=== PATIENT | male | born 1985 | race African-American/Black ===

== ENCOUNTER 2016-11-16 15:34 | Emergency (ER) ==
[2016-11-16 15:39] VITALS: BP 130/85; TEMP 99.6; BMI 25.5
[2016-11-16 15:58] LABS: EOSINOPHILS # (AUTO) 0.1 K/ul (0.0-0.7); EOSINOPHILS % (AUTO) 1.8 % (0.0-7.0); HEMATOCRIT 43.8 % (42.0-52.0); HEMOGLOBIN 15.1 g/dl (14.0-18.0); LYMPHOCYTES # (AUTO) 0.9 K/uL (0.60-3.4); LYMPHOCYTES % (AUTO) 22.6 (10.0-50.0); MEAN CORPUSCULAR HEMOGLOBIN 26.4 pg (27.0-31.0); MEAN CORPUSCULAR HGB CONC 34.5 (31.8-35.4); MEAN CORPUSCULAR VOLUME 76.4 fl (80.0-94.0); MONOCYTES # (AUTO) 0.2 K/uL (0.4-2.0); MONOCYTES % (AUTO) 4.5 (0-10); NEUTROPHILS # (AUTO) 2.8 K/ul (2.0-6.9); NEUTROPHILS % (AUTO) 70.1; PLATELET COUNT 177 10^3/uL (140-440); RED BLOOD COUNT 5.73 10^6/ul (4.70-6.10); WHITE BLOOD COUNT 3.98 K/ul (4.2-10.2)
[2016-11-16 16:20] LABS: ALBUMIN 4.3 g/dL (3.4-5.0); ALBUMIN/GLOBULIN RATIO 1.48; ANION GAP 12.4; BILIRUBIN,TOTAL 0.76 mg/dL (0.00-1.20); BUN/CREATININE RATIO 11.25; CALCIUM 9.5 mg/dL (8.2-10.2); CREATININE 1.51 mg/dL (0.60-1.10); POTASSIUM 4.4 mmol/L (3.5-5.1); TOTAL PROTEIN 7.2 g/dL (6.4-8.2)
[2016-11-16 16:28] LABS: ADD URINE MICROSCOPIC NO; BILIRUBIN,URINE Negative (NEGATIVE); KETONES,URINE Negative (NEGATIVE); LEUKOCYTE ESTERASE ,URINE Negative (NEGATIVE); NITRITE,URINE Negative (NEGATIVE); PH,URINE 7.5 (5-9); PROTEIN,URINE Negative (NEGATIVE); URINE, BLOOD Negative (NEGATIVE)
--- NOTE | 2016-11-16 16:50 | ED.PDOC ---
General ED Provider: Dr. NAYELY CHRISTIANSON Chief Complaint: Rectal Pain Stated Complaint: rectal pain Time Seen by Physician: 15:45 (no dark or bloody stools ) Mode of Arrival: Walk-In Information Source: Patient Exam Limitations: No limitations Nursing and Triage Documentation Reviewed and Agree: Yes GI Complaint Exam - Rectal Complaint/Exam Patient Complains of: Reports: Rectal pain. Denies: Rectal bleeding, Foreign body Symptoms Are: Resolved Timing: Intermittent Episodes Lasting: Weeks Initial Severity: Mild Current Severity: None Location: Reports: Rectal Character: Reports: Dull Aggravating: Reports: Bowel movement Alleviating: Reports: None Associated Signs and Symptoms: Denies: Rectal bleeding, Blood-streaked stool, Black tarry stool, Bright red blood w/ stool, Blood without stool Related History: Reports: Similar episode. Denies: Hemorrhoids, Proctitis, Crohn's, STD, Pilonidal Abcess, Perirectal Abcess, Hx of anal intercourse, Foriegn object Related Surgical History: Reports: None Review of Systems - Review Of Systems Constitutional: Reports: No symptoms Eyes: Reports: No symptoms Ears, Nose, Mouth, Throat: Reports: No symptoms Respiratory: Reports: No symptoms Cardiac: Reports: No symptoms GI: Reports: Other (RECTAL PAIN) : Reports: No symptoms Musculoskeletal: Reports: No symptoms Skin: Reports: No symptoms Neurological: Reports: No symptoms Endocrine: Reports: No symptoms Hematologic/Lymphatic: Reports: No symptoms All Other Systems: Reviewed and Negative Past Medical History - Past Medical History Previously Healthy: Yes Endocrine: Reports: None Cardiovascular: Reports: None Respiratory: Reports: None Hematological: Reports: None Gastrointestinal: Reports: None Genitourinary: Reports: None Neuro/Psych: Reports: None Musculoskeletal: Reports: None Cancer: Reports: None - Surgical History General Surgical History: Reports: None - Family History Family History: Reports: None - Social History Smoking Status: Never smoker Hx Substance Use: No Alcohol Screening: None Physical Exam - Physical Exam Appearance: Well-appearing, No pain distress, Well-nourished Eyes: LUCÍA, EOMI, Conjunctiva clear ENT: Ears normal, Nose normal, Oropharynx normal Respiratory: Airway patent, Breath sounds clear, Breath sounds equal, Respirations nonlabored Cardiovascular: RRR, Pulses normal, No rub, No murmur GI/: Soft, Nontender, No masses, Bowel sounds normal, No Organomegaly Musculoskeletal: Normal strength, ROM intact, No edema, No calf tenderness Skin: Warm, Dry, Normal color Neurological: Sensation intact, Motor intact, Reflexes intact, Cranial nerves intact, Alert, Oriented Psychiatric: Affect appropriate, Mood appropriate Critical Care Note - Critical Care Note Total Time (mins): 0 Course - Course Hematology/Chemistry: 11/16/16 15:45 11/16/16 15:45 Orders, Labs, Meds: Lab Review 11/16/16 11/16/16 15:45 16:07 WBC 3.98 L RBC 5.73 Hgb 15.1 Hct 43.8 MCV 76.4 L MCH 26.4 L MCHC 34.5 RDW Coeff of Emma 13.3 Plt Count 177 Immature Gran % (Auto) 0.0 Neut % (Auto) 70.1 Lymph % (Auto) 22.6 Morgan % (Auto) 4.5 Eos % (Auto) 1.8 Baso % (Auto) 1.0 Immature Gran # (Auto) 0.0 Neut # 2.8 Lymph # 0.9 Morgan # 0.2 L Eos # 0.1 Baso # 0.0 Sodium 141 Potassium 4.4 Chloride 103 Carbon Dioxide 30 Anion Gap 12.4 BUN 17 Creatinine 1.51 H Estimated GFR (MDRD) 66.00 BUN/Creatinine Ratio 11.25 Glucose 100 Calcium 9.5 Total Bilirubin 0.76 AST 20 ALT 16 Alkaline Phosphatase 61 Total Protein 7.2 Albumin 4.3 Globulin 2.9 Albumin/Globulin Ratio 1.48 Urine Color Yellow Urine Clarity Clear Urine pH 7.5 Ur Specific [place] 1.020 Urine Protein Negative Urine Glucose (UA) Negative Urine Ketones Negative Urine Blood Negative Urine Nitrite Negative Urine Bilirubin Negative Urine Urobilinogen 0.2 Ur Leukocyte Esterase Negative Orders Category Date Time Status CBC W/ AUTO DIFF Stat LAB 11/16/16 15:45 Completed COMPREHENSIVE METABOLIC PANEL Stat LAB 11/16/16 15:45 Completed PSA [PROSTATE SPECIFIC ANTIGEN SCRN] Stat LAB 11/16/16 15:45 Received URINALYSIS C & S IF INDICATED Stat LAB 11/16/16 16:07 Completed Vital Signs: Temp Pulse Resp BP Pulse Ox 11/16/16 15:36 99.6 F 77 20 130/85 94 L Departure - Departure Time of Disposition: 16:49 (must return for ultra sound Usha) Disposition: HOME SELF-CARE Discharge Problem: Rectal pain Instructions: Rectal Pain (ED) Condition: Good Pt referred to PMD for follow-up: No Additional Instructions: Please call your Family Physician as soon as possible to schedule a follow-up appointment. RETURN IN AM FOR ULTRASOUND Allergies/Adverse Reactions: Allergies No Known Allergies Allergy (Unverified 11/16/16 15:34) Home Medications: Ambulatory Orders Hydrocodone/Acetaminophen [Hydrocodon-Acetaminophen 5-325] 1 each PO TID PRN Naproxen [Naprosyn] 500 mg PO Q12HR PRN #30 tablet 02/28/15
== END 2016-11-16 16:57 | disposition home or self-care (01) ==
LOC: ED 15:34
DX: K62.89 Other specified diseases of anus and rectum (principal)
CPT/HCPCS: 36415; 80053; 81001; 85025; 99283

== ENCOUNTER 2016-11-17 10:17 | Emergency (ER) ==
[2016-11-17 10:17] VITALS: BMI 25.5
[2016-11-17 10:28] VITALS: BP 127/88; TEMP 97.7
--- NOTE | 2016-11-17 11:38 | CT ---
EXAM: CT abdomen pelvis without contrast HISTORY: Elevated creatinine and prostate symptoms, rectal pain, low back pain COMPARISON: None TECHNIQUE: CT abdomen pelvis performed without intravenous contrast. Coronal and sagittal reformat anand images obtained. FINDINGS: The lung bases clear. No free air. No acute abnormalities of the bones. Mild degenerat marta change in the spine. Heart normal in size. Evaluation organ parenchyma limited without contras t. Liver appears normal. Gallbladder appears normal. The pancreas appears normal. Spleen appears normal. Adrenals appear normal. No hydronephrosis or nephrolithiasis. No calculi visualized in n ormal course of the ureters. Aorta normal in caliber. No lymphadenopathy or ascites. Bladder onl y mildly distended and poorly evaluated, grossly unremarkable. Prostate normal in size. Stomach ap pears normal. No dilated loops small bowel. Appendix appears normal. Colon appears normal. IMPRESSION: No acute inflammatory process identified in the abdomen or pelvis. No hydronephrosis o r nephrolithiasis
--- NOTE | 2016-11-17 11:57 | ED.PDOC ---
General ED Provider: Dr. NAYELY CHRISTIANSON Chief Complaint: Rectal Pain Stated Complaint: RECTAL PAIN Time Seen by Physician: 10:20 (RETURNS FOR FOLLOW UP PER MY INSTRUCTION NO GI BLEED ) Mode of Arrival: Walk-In Information Source: Patient Exam Limitations: No limitations Nursing and Triage Documentation Reviewed and Agree: Yes GI Complaint Exam - Rectal Complaint/Exam Patient Complains of: Reports: Rectal pain Onset/Duration: WEEKS NO GI BLEED Timing: Intermittent Episodes Lasting: Weeks Initial Severity: Moderate Current Severity: None Location: Reports: Anal Character: Reports: Dull Aggravating: Reports: None Alleviating: Reports: None Associated Signs and Symptoms: Denies: Rectal bleeding, Blood-streaked stool, Black tarry stool, Bright red blood w/ stool, Blood without stool Related History: Reports: Similar episode Related Surgical History: Reports: None Review of Systems - Review Of Systems Constitutional: Reports: No symptoms Eyes: Reports: No symptoms Ears, Nose, Mouth, Throat: Reports: No symptoms Respiratory: Reports: No symptoms Cardiac: Reports: No symptoms GI: Reports: Other (RECTAL PAIN) : Denies: Burning, Dysuria, Discharge, Frequency, Flank pain, Hematuria, Incontinence, Pain, Urgency Musculoskeletal: Reports: No symptoms Skin: Reports: No symptoms Neurological: Reports: No symptoms Endocrine: Reports: No symptoms Hematologic/Lymphatic: Reports: No symptoms All Other Systems: Reviewed and Negative Past Medical History - Past Medical History Previously Healthy: Yes Endocrine: Reports: None Cardiovascular: Reports: None Respiratory: Reports: None Hematological: Reports: None Gastrointestinal: Reports: None Genitourinary: Reports: None Neuro/Psych: Reports: None Musculoskeletal: Reports: None Cancer: Reports: None - Surgical History General Surgical History: Reports: None - Family History Family History: Reports: None - Social History Smoking Status: Never smoker Hx Substance Use: No Alcohol Screening: None - Immunizations Tetanus Shot up to Date: Yes Physical Exam - Physical Exam Appearance: Well-appearing, No pain distress, Well-nourished Eyes: LUCÍA, EOMI, Conjunctiva clear ENT: Ears normal, Nose normal, Oropharynx normal Respiratory: Airway patent, Breath sounds clear, Breath sounds equal, Respirations nonlabored Cardiovascular: RRR, Pulses normal, No rub, No murmur GI/: Soft, Nontender, No masses, Bowel sounds normal, No Organomegaly Musculoskeletal: Normal strength, ROM intact, No edema, No calf tenderness Skin: Warm, Dry, Normal color Neurological: Sensation intact, Motor intact, Reflexes intact, Cranial nerves intact, Alert, Oriented Psychiatric: Affect appropriate, Mood appropriate Interpretation - Radiology Interpretation Radiology Interpretation By: Radiologist Radiology Results: No acute changes Exam Interpreted: CT Scan Critical Care Note - Critical Care Note Total Time (mins): 0 Course - Course Orders, Labs, Meds: Orders Category Date Time Status CT ABD/PEL WO RENAL STONE PROT Stat RADS 11/17/16 10:27 Completed Vital Signs: Temp Pulse Resp BP Pulse Ox 11/17/16 10:18 97.7 F 76 16 127/88 96 Departure - Departure Time of Disposition: 11:58 Disposition: HOME SELF-CARE Discharge Problem: Rectal pain Instructions: Rectal Pain (ED) Condition: Good Pt referred to PMD for follow-up: No Additional Instructions: Please call your Family Physician as soon as possible to schedule a follow-up appointment.MUST FOLLOW UP WITH CLINIC FOR UROLOGY, COLONSCOPY FOLLOW UP ELICIA Allergies/Adverse Reactions: Allergies No Known Allergies Allergy (Unverified 11/16/16 15:34) Home Medications: Ambulatory Orders Hydrocodone/Acetaminophen [Hydrocodon-Acetaminophen 5-325] 1 each PO TID PRN Naproxen [Naprosyn] 500 mg PO Q12HR PRN #30 tablet 02/28/15 Disposition Discussed With: Patient
== END 2016-11-17 12:07 | disposition home or self-care (01) ==
LOC: ED 10:17
DX: K62.89 Other specified diseases of anus and rectum (principal)
CPT/HCPCS: 74176; 99282

== ENCOUNTER 2016-11-21 10:25 | Outpatient (CLI) ==
--- NOTE | 2016-11-21 12:14 | US ---
EXAM: SCROTAL ULTRASOUND HISTORY: Painful ejaculation FINDINGS: Scrotal ultrasound exam performed using real time keen-scale and color-flow Doppler imaging. The right testis measures 4.0 x 2.2 x 2.5 cm and the left measures 3.7 x 1.7 x 2.1 cm. 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 The technologist measured a 0.4 cm h ypoechoic focus which was thought to be within the upper left testis and is of indeterminate etiolog y and clinical significance. Conceivably this could be tissue adjacent to the testis, indeterminate . Testes otherwise demonstrated normal and symmetric echogenicity. Adequate bilateral testicular b lood flow is seen. Epididymal tissue was grossly within normal limits. There is a small left varic ocele. Small simple left hydrocele. IMPRESSION: 1. No definite etiology for the patient's symptoms was found. 2. Exuberant bilateral microlithiasis which it is thought to hold an increased chance for testicula r neoplasia. There is an indeterminate hypoechoic focus which may be within the superior left testi cular substance, as described. Follow-up ultrasound with attention to this level is recommended. 3. Left varicocele. 4. Small simple left hydrocele.
== END 2016-11-21 10:26 | disposition home or self-care (01) ==
LOC: RAD 10:25
PROVIDERS: ATTEND Nurse Practitioner Family
DX: N53.12 Painful ejaculation (principal)

== ENCOUNTER 2017-01-09 13:15 | Emergency (ER) ==
[2017-01-09 13:25] VITALS: BP 111/69; TEMP 97.9; BMI 25.7
--- NOTE | 2017-01-09 15:34 | ED.PDOC ---
General ED Provider: Dr. CHELITA TURNER Chief Complaint: Rectal Pain Stated Complaint: Rectal pain following intercourse. Denies rectal intercourse or object insertion Time Seen by Physician: 15:25 Information Source: Patient Primary Care Provider: KAGN BRUNO Nursing and Triage Documentation Reviewed and Agree: Yes Review of Systems - Review Of Systems Constitutional: Reports: No symptoms GI: Reports: Other (Occasional rectal pain) All Other Systems: Reviewed and Negative Past Medical History - Past Medical History Previously Healthy: Yes Endocrine: Reports: None Cardiovascular: Reports: None Respiratory: Reports: None Hematological: Reports: None Gastrointestinal: Reports: None Genitourinary: Reports: None Neuro/Psych: Reports: None Musculoskeletal: Reports: None Cancer: Reports: None - Surgical History General Surgical History: Reports: None - Family History Family History: Reports: None - Social History Smoking Status: Never smoker Hx Substance Use: No Alcohol Screening: None Physical Exam - Physical Exam Appearance: Well-appearing GI/: Soft, Nontender (Rectal tone intact; no masses; prostate WNL) Musculoskeletal: Normal strength, ROM intact Skin: Warm, Dry, Normal color Neurological: Sensation intact, Motor intact, Alert, Oriented Psychiatric: Affect appropriate, Mood appropriate Critical Care Note - Critical Care Note Total Time (mins): 8 Course - Course Vital Signs: Temp Pulse Resp BP Pulse Ox 01/09/17 13:20 97.9 F 78 16 111/69 97 Departure - Departure Time of Disposition: 15:41 Disposition: HOME SELF-CARE Discharge Problem: Anal or rectal pain Instructions: Rectal Pain (ED) Condition: Good Pt referred to PMD for follow-up: Yes (call for appointment) Additional Instructions: Keep your planned/scheduled appointment for colonoscopy. Follow up with a primary care provider. Keep well hydrated - increase fruits, vegetables, prunes to help with constipation. Allergies/Adverse Reactions: Allergies No Known Allergies Allergy (Unverified 01/09/17 13:19) Home Medications: Ambulatory Orders Hydrocodone/Acetaminophen [Hydrocodon-Acetaminophen 5-325] 1 each PO TID PRN Disposition Discussed With: Patient
== END 2017-01-09 16:23 | disposition home or self-care (01) ==
LOC: ED 13:15
DX: K62.89 Other specified diseases of anus and rectum (principal)
CPT/HCPCS: 99282

== ENCOUNTER 2017-11-27 16:14 | Outpatient (CLI) | END 2017-11-27 16:15 | disposition home or self-care (01) | LOC: LAB 16:14 | PROVIDERS: ATTEND Nurse Practitioner Family | DX: R30.9 Painful micturition, unspecified (principal); R82.90 Unspecified abnormal findings in urine; M25.561 Pain in right knee; Z72.51 High risk heterosexual behavior | CPT/HCPCS: 81001; 87800 ==